=== PATIENT | female | born 1980 | race Caucasian/White ===

== ENCOUNTER → 2017-08-10 08:00 | Outpatient (CLI) | payer BC, SELFPAY ==
--- NOTE | 2017-08-10 08:03 | RAD_ITS ---
STUDY: HYSTEROSALPINGOGRAM. REASON FOR EXAM: Female, 36 years old. Infertility. FLUOROSCOPY TIME (if supplied): (0:38) minutes/seconds TECHNIQUE: Hysterosalpingogram was performed by the plastics and composites inspector. Imaging was provided. COMPARISON: None. FINDINGS: Only the right horn of the uterus was visualized. The right fallopian tube is widely patent with spill. Correlation with ultrasound of the pelvis is recommended for further evaluation. 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 Correlation with pelvic ultrasound is recommended. Electronically Signed: Torsten Renteria MD at 10:47 EST Tel [phone], Service support ,
== END ==
PROVIDERS: Family Provider Family Medicine; PCP Family Medicine; Visit Provider Obstetrics & Gynecology
DX: Q51.4 Unicornate uterus (principal); N97.9 Female infertility, unspecified
CPT/HCPCS: 58340; 74740; Q9967

== ENCOUNTER → 2020-01-23 13:16 | Outpatient (CLI) | payer BC, SELFPAY ==
[2018-11-28 13:59] VITALS: BMI 36.9
[2020-01-23 13:01] VITALS: BMI 36.9
--- NOTE | 2020-01-23 13:18 | BI_ITS ---
MAMMOGRAPHY - BILATERAL DIAGNOSTIC REASON FOR EXAM: Female, 39 years old. Right breast lump and tenderness for 6 months. PERTINENT HISTORY: Non-contributory. TECHNIQUE: Digital bilateral breast edgar (3D mammographic acquisition) in the CC and MLO projections. 2-D mediolateral oblique (MLO) and craniocaudad (CC) views of both breasts were obtained. CAD: Full Field Digital Mammography with Computer Added Detection was performed. COMPARISON: None. Baseline examination. FINDINGS: Breast Composition: The breasts are heterogeneously dense, which may obscure small masses. There are no dominant masses or suspicious calcifications. Asymmetry of breast tissue where more breast tissue is seen in the upper outer quadrant of the right breast as compared to the left side. Benign appearing bilateral axillary lymph nodes. No other significant abnormalities are identified. BI/DIAG MAMM W/CAD, BILAT IMPRESSION: Negative diagnostic mammogram. With the patient''s history of a palpable lump in the upper outer quadrant of the right breast, correlation with ultrasound is recommended. ASSESSMENT CATEGORY: BIRADS Category 0: Incomplete. Need additional imaging evaluation. A letter regarding these results will be sent to the patient by the facility within 30 days. Approximately 10% of breast cancers are not detected by mammography. A normal mammogram should not delay biopsy of a clinically suspicious abnormality. Electronically Signed: Torsten Renteria, at 14:46 EDT , Service support ,
--- NOTE | 2020-01-23 13:18 | US_ITS ---
STUDY: ULTRASOUND BREAST - RIGHT REASON FOR EXAM: Female, 39 years old. Palpable lump in the right breast. TECHNIQUE: Axial and longitudinal images of the RIGHT breast were performed with a high resolution ultrasound transducer. # OF IMAGES: 28 COMPARISON: Comparison is made with prior mammogram done earlier today. FINDINGS: RIGHT Breast: The outer upper quadrant of the right breast was examined by ultrasound. There is homogeneous fibroglandular tissue. No sonographic abnormality is seen. US/Breast Limited Unilateral IMPRESSION: No sonographic abnormality is seen. ASSESSMENT CATEGORY: BIRADS Category 1: Negative. A letter regarding these results will be sent to the patient by the facility within 30 days. Electronically Signed: Torsten Renteria, at 14:36 EDT , Service support ,
== END ==
PROVIDERS: PCP Family Medicine; Referring Provider Obstetrics & Gynecology; Visit Provider Obstetrics & Gynecology
DX: N63.20 Unspecified lump in the left breast, unspecified quadrant (principal)
CPT/HCPCS: 76642; 77066

== ENCOUNTER → 2021-05-10 14:39 | Outpatient (CLI) | payer BC, SELFPAY | PROVIDERS: PCP Family Medicine; Visit Provider Nurse Practitioner Women's Health | DX: N76.0 Acute vaginitis (principal) | CPT/HCPCS: 87070; 87205 ==

== ENCOUNTER 2021-07-19 09:13 | Outpatient (CLI) | payer BC, SELFPAY ==
[2021-07-22 14:07] LABS: HPV APTIMA, High Risk Negative (Negative)
== END 2021-07-19 23:59 | disposition short-term general hospital (02) ==
LOC: LABSPEC 07-20 09:16
PROVIDERS: PCP Family Medicine; Visit Provider Nurse Practitioner Women's Health
DX: Z12.4 Encounter for screening for malignant neoplasm of cervix (principal)
CPT/HCPCS: 87624; 88175; G0145